=== PATIENT | male | born 1985 | race Caucasian/White ===

== ENCOUNTER 2024-08-01 15:13 | Outpatient (CLI) | payer OTHER, SELFPAY | END 2024-08-01 15:14 | disposition home or self-care (01) | LOC: NFLDREF 08-06 17:05 | PROVIDERS: PCP Family Medicine; Referring Provider Family Medicine; Visit Provider Family Medicine | DX: E78.5 Hyperlipidemia, unspecified (principal); R03.0 Elevated blood-pressure reading, without diagnosis of hypertension | CPT/HCPCS: 80053; 80061 ==

== ENCOUNTER 2025-03-06 18:02 | Outpatient (CLI) | payer OTHER, SELFPAY ==
--- NOTE | 2025-03-06 18:15 | CRLHL7_ITS ---
For Patients: As a result of the Century Cures Act, medical imaging exams and procedure reports are released immediately into your electronic medical record. You may view this report before your referring provider. If you have questions, please contact your health care provider. INDICATION: Low back pain. TECHNIQUE: Noncontrast sagittal and axial T1, T2, and sagittal STIR sequences are provided. No comparisons. FINDINGS: The overall stature, alignment and intrinsic marrow signal of the lumbar spine is within normal limits. Conus is normal. L4-5: Mild posterior central disc protrusion effaces the ventral thecal sac but results in no central canal or foraminal narrowing. L5-S1: Mild posterior central disc bulge results in no central canal or foraminal narrowing. Remainder of the lumbar spine is unremarkable, specifically no evidence of suspicious central canal or foraminal narrowing. IMPRESSION: 1. Mild discogenic degenerative change at L4-5, L5-S1 resulting in no significant central canal or foraminal narrowing. Dictated by Tomas Reno MD @ 03/07/2025 8:23:41 AM (Electronically Signed)
== END 2025-03-06 18:03 | disposition home or self-care (01) ==
LOC: MRI 18:05
PROVIDERS: PCP Family Medicine; Visit Provider Internal Medicine
DX: M54.50 Low back pain, unspecified (principal); M51.369 Other intervertebral disc degeneration, lumbar region without mention of lumbar back pain or lower extremity pain; M51.379 Other intervertebral disc degeneration, lumbosacral region without mention of lumbar back pain or lower extremity pain
CPT/HCPCS: 72148